=== PATIENT | female | born 1950 | race Caucasian/White ===

== ENCOUNTER 2016-11-15 15:09 | Emergency (ER) | payer MEDICARE, MEDICAID ==
[~2016-11-15] VITALS: Ht 167.6 cm; Wt 70.2 kg
[~2016-11-15 15:09] MED LIST: ACET-1757 PO; ACET325T14 PO; ASPI-621 PO; ASPI325T4 PO; ATOR80TA PO; Atorvastatin Calcium PO; ENAL2.5T32 PO; METO-93 PO; METO25TA35 PO; NICO1PAT5 TD; PRAS10TA4 PO; SUMA100T3 PO; TICA90TA PO
[2016-11-15] MEDS ORDERED: SODIUM CHLORIDE FLUSH 10ML SYR IVF ONE (15:30)
[2016-11-15] MEDS ORDERED: SODIUM CHLORIDE 0.9% 1,000ML IVBOLUS ONE (15:30)
[2016-11-15 15:58] LABS: HEMOGLOBIN 15.6 g/dL (11.7-16.4)
[2016-11-15 16:10] LABS: ASPARTATE AMINO TRANSFERASE 17 U/L (15-37); BLOOD UREA NITROGEN 15 mg/dL (7-18)
[2016-11-15 16:33] LABS: IS PT STATUS REG ER OR PRE ER? YES
[2016-11-15 18:11] VITALS: BP 177/89
== END 2016-11-15 18:57 | disposition home or self-care (01) ==
LOC: ED 16:23
DX: K92.2 Gastrointestinal hemorrhage, unspecified (principal); R07.2 Precordial pain; K05.00 Acute gingivitis, plaque induced; I10 Essential (primary) hypertension; K12.0 Recurrent oral aphthae; E78.5 Hyperlipidemia, unspecified; I25.810 Atherosclerosis of coronary artery bypass graft(s) without angina pectoris; Z95.1 Presence of aortocoronary bypass graft; Z90.89 Acquired absence of other organs
CPT/HCPCS: 36415; 71010; 80053; 84484; 85025; 85610; 85730; 93005

== ENCOUNTER → 2016-11-20 | Outpatient (CLI) | payer MEDICARE, MEDICAID ==
[2016-11-20 15:53] LABS: OCCBLD OBC PASS
== END | disposition home or self-care (01) ==
LOC: CFH 13:38
PROVIDERS: ATTEND Internal Medicine Cardiovascular Disease
DX: R58 Hemorrhage, not elsewhere classified (principal)
CPT/HCPCS: 82272

== ENCOUNTER 2018-03-13 05:10 | Emergency (ER) | payer MEDICARE, MEDICAID ==
[~2018-03-13] VITALS: Ht 170.2 cm; Wt 69.2 kg
[~2018-03-13 05:10] MED LIST changes: +ASPI325T17 PO; -ASPI325T4 PO; +NICO-487 TD; -NICO1PAT5 TD
[2018-03-13 05:11] VITALS: BP 182/99
== END 2018-03-13 06:14 | disposition home or self-care (01) ==
LOC: ED 06:08
DX: S60.042A Contusion of left ring finger without damage to nail, initial encounter (principal); E78.5 Hyperlipidemia, unspecified; I10 Essential (primary) hypertension; I25.2 Old myocardial infarction; F17.200 Nicotine dependence, unspecified, uncomplicated; X58.XXXA Exposure to other specified factors, initial encounter; Y93.89 Activity, other specified; Y92.89 Other specified places as the place of occurrence of the external cause; Y99.8 Other external cause status
CPT/HCPCS: 99284

== ENCOUNTER 2018-09-15 12:31 | Emergency (ER) | payer MEDICARE, MEDICAID ==
[~2018-09-15] VITALS: Ht 170.2 cm; Wt 72.3 kg
[~2018-09-15 12:31] MED LIST changes: -ASPI-621 PO; +ASPI81TA45 PO
--- NOTE | 2018-09-15 14:00 | NUR ---
PT REPORTS DENTAL PAIN X2 DAYS. STATES SHE IS UNABLE TO TAKE "CODEINE WITH EPI, IM ALLERGIC AND THATS WHAT THEY ALWAYS GIVE ME, SO I DONT HAVE A DENTIST I TRUST" PT STATES SHE HAS HX HTN BUT HAS DISCUSSED WITH HER MD "LUCIANA" THAT SHE IS NOT SUPPOSE TO TAKE ANY MEDICATIONS, PT AWARE HER BP IS ELEVATED TODAY, PT STATES THAT IS NORMAL FOR HER AND HER TELEPHONE SALES REPRESENTATIVE IS AWARE AND DENIES THAT SHE IS SUPPOSE TO BE ON ANY MEDICATIONS FOR IT.
--- NOTE | 2018-09-15 14:43 | NUR ---
PT REQ ABX TREATMENT, REFUSES OPTION FOR DRAINING ABCSESS, AWARE TO RETURN FOR ANY WORSENING SYMPTOMS AFTER ABX TREATMENT.
--- NOTE | 2018-09-15 14:59 | NUR ---
SBAR report received from RN, Ginger. Pt resting on charles.
[2018-09-15 15:17] VITALS: BP 143/73
--- NOTE | 2018-09-15 16:04 | NUR ---
Patient/Caregiver given discharge instructions and they have confirmed that they understand the instructions. Patient ambulatory with steady gait.
== END 2018-09-15 16:04 | disposition home or self-care (01) ==
LOC: ED 15:09
DX: K08.89 Other specified disorders of teeth and supporting structures (principal); G40.909 Epilepsy, unspecified, not intractable, without status epilepticus; I10 Essential (primary) hypertension; I25.2 Old myocardial infarction; E78.5 Hyperlipidemia, unspecified; I25.10 Atherosclerotic heart disease of native coronary artery without angina pectoris; Z95.1 Presence of aortocoronary bypass graft
CPT/HCPCS: 99283

== ENCOUNTER 2018-12-03 01:25 | Inpatient (IN) | payer MEDICARE, MEDICAID ==
[~2018-12-03] VITALS: Ht 170.2 cm; Wt 70.4 kg
[~2018-12-03 01:25] MED LIST changes: +AMIODARONE 50 MG/ML, 3ML ONE
[2018-12-03] MEDS ORDERED: FENTANYL PF 100 MCG/2ML ONE ×2 (01:30→01:50)
[2018-12-03 01:41] LABS: MEAN CORPUSCULAR HEMOGLOBIN 32.2 pg (27.0-34.8); MEAN CORPUSCULAR HGB CONC 34.7 g/dL (32.4-35.8); MEAN CORPUSCULAR VOLUME 92.6 fL (80-100); PLATELET COUNT 386 x10^3/uL (130-400); RED BLOOD COUNT 4.79 x10^6/uL (3.82-5.3)
[2018-12-03] MEDS ORDERED: ATROPINE SYRINGE 0.1 MG/ML, 10ML ONE (01:46)
[2018-12-03 01:50] LABS: MD YES
[2018-12-03] MEDS ORDERED: TICAGRELOR 90 MG TABLET ONE (01:50)
[2018-12-03] MEDS ORDERED: VERAPAMIL 2.5 MG/ML, 2ML ONE (01:50)
[2018-12-03] MEDS ORDERED: PHENYLEPHRINE 10 MG/ML ONE (01:51)
[2018-12-03] MEDS ORDERED: MIDAZOLAM 1 MG/ML, 2ML ONE (01:51)
[2018-12-03] MEDS ORDERED: HEPARIN 1,000 UNITS/ML, 10ML ONE (01:51)
[2018-12-03] MEDS ORDERED: LIDOCAINE 2%, 20ML ONE (01:51)
[2018-12-03] MEDS ORDERED: BIVALIRUDIN 250 MG ONE ×2 (01:51→03:03)
[2018-12-03 01:52] LABS: INTERNATIONAL NORMALIZED RATIO 0.99 (0.93-1.1); PROTHROMBIN TIME 10.4 Seconds (9.6-11.5)
[2018-12-03] MEDS ORDERED: HEPARIN 25,000 UNITS/500ML PMX 500 ML ONE (01:53)
[2018-12-03 01:55] LABS: BASOS#(MANUAL) 0.16 x10^3/uL (0-0.1); BASOS% (MANUAL) 1 % (0-1); EOS#(MANUAL) 0.32 x10^3/uL (0.0-0.4); EOS% (MANUAL) 2 % (1-7); LYMPH#(MANUAL) 6.84 x10^3/uL (1-3.4); LYMPHS% (MANUAL) 43 % (22-44); MONOS#(MANUAL) 1.11 x10^3/uL (0.3-2.7); MONOS% (MANUAL) 7 % (2-9); REACTIVE LYMPHS # (MANUAL) 0.48 x10^3/uL (0-0); REACTIVE LYMPHS % (MANUAL) 3 % (0-0); SEGS% (MANUAL) 44 % (42-75)
[2018-12-03 01:56] LABS: <PLATELET ESTIMATE> ADEQUATE; <PLT MORPHOLOGY> NORMAL PLT MORPH; <RBC MORPHOLOGY> NORMAL; SMUDGE CELLS 1+
--- NOTE | 2018-12-03 01:58 | NUR ---
code cardiac called @ 0114 test lab technician called @ 0116 cards paged @ 0124 sriram called back @ 0124
--- NOTE | 2018-12-03 01:59 | NUR ---
code girish called @ [phone]
[2018-12-03] MEDS ORDERED: HEPARIN 5,000 UNITS/ML, 1ML IV ONE (02:00)
[2018-12-03] MEDS ORDERED: FENTANYL PF 100 MCG/2ML IV ONE ×2 (02:00)
[2018-12-03] MEDS ORDERED: HEPARIN 5,000 UNITS/ML, 1ML IV PRN (02:00)
[2018-12-03] MEDS ORDERED: ATROPINE SYRINGE 0.1 MG/ML, 10ML IVPush ONE (02:00)
[2018-12-03] MEDS ORDERED: HEPARIN 25,000 UNITS/500ML PMX 500 ML IV PRN (02:00)
--- NOTE | 2018-12-03 02:38 | NUR ---
PT ARRIVED VIA [facility] D/T CODE CARDIAC. PT'S HR WAS LOW UP TO 40'S BP WAS MANAGABLE 110/66 , [facility] GIVEN 325 ASA WITH IV NS WAS INFUSING GIVEN FENTANYL 100MCG VIA IV , BP WAS DROPPED WITH LOW HR , GIVEN IMG OF ATROPIN BUT DIDN'T WORK WELL DR STRAUSS WAS IN [facility] BACK UPHOLSTERER WAS READY DR BENITEZ STARTED PACER DURING THE TRNASPORTATION. ANOTHER RN OSSHAUNSSE AND THIS RN WAS TRANSFREEING PT BUT ON THE ELEVATER DOOR PT'S HEART RHYTHM WAS VFIB PT WAS BACK TO T4 CODE BLUE WAS CALLED ONE SHOCK WITH AMIODARONE 300MG IV PUSH PT WAS MOANING HR PULSE WAS BACK AMIODARONE 1MG/MIN WAS STARTED PT WAS TRANSFERRED TO [facility] BACK UPHOLSTERER WITH DR BENITEZ WITH STAFFS PT WAS RESPONDING DURING THE TIME
[2018-12-03] MEDS ORDERED: HEPARIN 5,000 UNITS/ML, 1ML ONE (02:51)
[2018-12-03] MEDS ORDERED: BIVALIRUDIN 250 MG in SODIUM CHLORIDE 0.9% 50 ML IV SCH ×2 (02:54→05:30)
[2018-12-03] MEDS ORDERED: AMIODARONE 50 MG/ML, 3ML IVPush ONE (03:00)
[2018-12-03] MEDS ORDERED: ONDANSETRON 2MG/ML, 2ML IVPush PRN (03:00)
[2018-12-03] MEDS ORDERED: CODE BLUE RESPONSE XX ONE (03:00)
[2018-12-03] MEDS ORDERED: SODIUM CHLORIDE 0.9% 1,000 ML IV SCH (03:00)
[2018-12-03] MEDS ORDERED: NITROGLYCERIN 0.4 MG/SPRAY SL PRN (03:00)
[2018-12-03] MEDS ORDERED: AMIODARONE 900 MG in DEXTROSE 5% 482 ML IV PRN (03:00)
[2018-12-03] MEDS ORDERED: NITROGLYCERIN 0.4 MG BOTTLE (25 TABS) SL PRN (03:00)
[2018-12-03] MEDS ORDERED: FILTER 0.22 MICRON IV ONE (03:00)
[2018-12-03] MEDS ORDERED: ZOLPIDEM 5MG TABLET PO PRN (03:00)
[2018-12-03] MEDS ORDERED: AMIODARONE 450 MG in DEXTROSE 5% 241 ML IV PRN (03:00)
[2018-12-03] MEDS ORDERED: DOPAMINE/D5W PMX 250 ML IV PRN (03:30)
[2018-12-03] MEDS: PRASUGREL 10 MG TABLET PO ONE ×2 (03:30→05:26)
[2018-12-03 04:16] VITALS: BP 103/50
[2018-12-03] MEDS: ASPIRIN 81 MG TABLET EC PO SCH ×4 (05:26→10:21)
[2018-12-03 07:25] LABS: MEAN CORPUSCULAR HEMOGLOBIN 31.2 pg (27.0-34.8); MEAN CORPUSCULAR HGB CONC 33.6 g/dL (32.4-35.8); MEAN CORPUSCULAR VOLUME 92.7 fL (80-100); MEAN PLATELET VOLUME 7.2 fL (7.4-10.4); PLATELET COUNT 314 x10^3/uL (130-400); RED BLOOD COUNT 4.74 x10^6/uL (3.82-5.3)
[2018-12-03 07:33] LABS: ALBUMIN 3.5 g/dL (3.4-5.0); ANION GAP 7 mmol/L (5-15); CALCIUM 8.1 mg/dL (8.5-10.1); CHLORIDE 114 mmol/L (98-107)
[2018-12-03 07:43] LABS: ALANINE AMINOTRANSFERASE 397 U/L (12-78); ALKALINE PHOSPHATASE 88 U/L (45-117); BILIRUBIN,TOTAL 0.4 mg/dL (0.2-1.0); CREATININE 0.77 mg/dL (0.55-1.02); FREE T4 (FREE THYROXINE) 1.08 ng/dL (0.76-1.46); TOTAL PROTEIN 6.3 g/dL (6.4-8.2)
[2018-12-03 08:01] LABS: MD SCAN
[2018-12-03 08:02] LABS: BASOPHILS # (AUTO) 0.06 x10^3/uL (0-0.1); BASOPHILS % (AUTO) 0 % (0-1); EOSINOPHILS # (AUTO) 0.01 x10^3/uL (0-0.4); EOSINOPHILS % (AUTO) 0 % (1-7); LYMPHOCYTES # (AUTO) 1.51 x10^3/uL (1-3.4); LYMPHOCYTES % (AUTO) 8 % (22-44); MONOCYTES # (AUTO) 1.32 x10^3/uL (0.2-0.8); MONOCYTES % (AUTO) 7 % (2-9); NEUTROPHILS # (AUTO) 15.93 x10^3/uL (1.8-6.8); NEUTROPHILS % (AUTO) 85 % (42-75)
[2018-12-03] MEDS: PRASUGREL 10 MG TABLET PO SCH (09:00)
[2018-12-03 17:20] LABS: MICROSCOPIC NOT IND
[2018-12-03 17:27] LABS: CULTURE INDICATED? NO
[2018-12-03] MEDS: ACETAMINOPHEN 325 MG TABLET PO PRN (21:32)
[2018-12-03] MEDS: ATORVASTATIN 80 MG TABLET PO SCH (21:32)
[2018-12-04 04:00] VITALS: BP 120/71
[2018-12-04 04:50] LABS: ANION GAP 5 mmol/L (5-15); CHLORIDE 116 mmol/L (98-107)
[2018-12-04 04:52] LABS: BASOPHILS # (AUTO) 0.02 x10^3/uL (0-0.1); BASOPHILS % (AUTO) 0 % (0-1); EOSINOPHILS # (AUTO) 0.04 x10^3/uL (0-0.4); EOSINOPHILS % (AUTO) 0 % (1-7); LYMPHOCYTES # (AUTO) 2.64 x10^3/uL (1-3.4); LYMPHOCYTES % (AUTO) 18 % (22-44); MD NO; MEAN CORPUSCULAR HEMOGLOBIN 31.9 pg (27.0-34.8); MEAN CORPUSCULAR HGB CONC 34.4 g/dL (32.4-35.8); MEAN CORPUSCULAR VOLUME 92.6 fL (80-100); MEAN PLATELET VOLUME 7.3 fL (7.4-10.4); MONOCYTES # (AUTO) 1.06 x10^3/uL (0.2-0.8); MONOCYTES % (AUTO) 7 % (2-9); NEUTROPHILS # (AUTO) 10.78 x10^3/uL (1.8-6.8); NEUTROPHILS % (AUTO) 74 % (42-75); PLATELET COUNT 256 x10^3/uL (130-400); RED BLOOD COUNT 4.25 x10^6/uL (3.82-5.3)
[2018-12-04 05:05] LABS: % IRON SATURATION 19 % (20-55); ALANINE AMINOTRANSFERASE 333 U/L (12-78); ALKALINE PHOSPHATASE 76 U/L (45-117); BILIRUBIN,TOTAL 0.6 mg/dL (0.2-1.0); CHOL/HDL RATIO 6.5; CHOLESTEROL, TOTAL 150 mg/dL (140-239); CREATININE 0.61 mg/dL (0.55-1.02); HDL CHOL % 15 % (28-40); HDL CHOLESTEROL (DIRECT) 23 mg/dL (40-60); IRON LEVEL 51 mcg/dL (50-170); LDL CHOLESTEROL,CALCULATED 93 mg/dL (54-169); TOTAL IRON BINDING CAPACITY 275 mcg/dL (250-450); TOTAL PROTEIN 5.6 g/dL (6.4-8.2); TRIGLYCERIDES 171 mg/dL (50-200); VLDL CHOLESTEROL 34 mg/dL (0-25)
[2018-12-04 05:07] LABS: CREATINE KINASE, TOTAL 1220 U/L (26-192)
[2018-12-04] MEDS: ASPIRIN 81 MG TABLET EC PO SCH (06:11)
[2018-12-04] MEDS: PRASUGREL 10 MG TABLET PO SCH (08:17)
[2018-12-04 12:00] VITALS: BP 147/64
[2018-12-04 20:38] VITALS: BP 133/74
[2018-12-04] MEDS: ATORVASTATIN 80 MG TABLET PO SCH (20:56)
[2018-12-05] MEDS: ACETAMINOPHEN 325 MG TABLET PO PRN ×2 (01:20→10:34)
[2018-12-05 01:54] VITALS: BP 138/83
[2018-12-05] MEDS: ASPIRIN 81 MG TABLET EC PO SCH (05:47)
[2018-12-05 05:54] LABS: BASOPHILS # (AUTO) 0.04 x10^3/uL (0-0.1); BASOPHILS % (AUTO) 0 % (0-1); EOSINOPHILS # (AUTO) 0.09 x10^3/uL (0-0.4); EOSINOPHILS % (AUTO) 1 % (1-7); LYMPHOCYTES # (AUTO) 2.97 x10^3/uL (1-3.4); LYMPHOCYTES % (AUTO) 21 % (22-44); MD NO; MEAN CORPUSCULAR HEMOGLOBIN 31.6 pg (27.0-34.8); MEAN CORPUSCULAR HGB CONC 33.9 g/dL (32.4-35.8); MEAN CORPUSCULAR VOLUME 93.1 fL (80-100); MEAN PLATELET VOLUME 7.6 fL (7.4-10.4); MONOCYTES % (AUTO) 9 % (2-9); NEUTROPHILS # (AUTO) 9.69 x10^3/uL (1.8-6.8); NEUTROPHILS % (AUTO) 69 % (42-75); PLATELET COUNT 247 x10^3/uL (130-400); RED CELL DISTRIBUTION WIDTH 12.9 % (9.6-15.2)
[2018-12-05 06:04] LABS: ANION GAP 6 mmol/L (5-15); CALCIUM 8.6 mg/dL (8.5-10.1); CHLORIDE 113 mmol/L (98-107)
[2018-12-05 06:08] LABS: ALANINE AMINOTRANSFERASE 222 U/L (12-78); ALKALINE PHOSPHATASE 82 U/L (45-117); BILIRUBIN,TOTAL 1.1 mg/dL (0.2-1.0); CREATINE KINASE, TOTAL 399 U/L (26-192); CREATININE 0.49 mg/dL (0.55-1.02)
[2018-12-05 08:09] VITALS: BP 111/72
[2018-12-05] MEDS ORDERED: POTASSIUM CHLORIDE 20 MEQ TAB.ER.PRT PO ONE (10:30)
[2018-12-05] MEDS: PRASUGREL 10 MG TABLET PO SCH (10:34)
[2018-12-05] MEDS: morphine SULFATE 10 MG/ML, 1ML IVPush PRN (15:06)
[2018-12-05 16:18] VITALS: BP 135/80
[2018-12-05 18:55] VITALS: BP 146/76
[2018-12-05] MEDS: ATORVASTATIN 80 MG TABLET PO SCH (20:41)
[2018-12-06 00:57] VITALS: BP 126/72
[2018-12-06] MEDS: ASPIRIN 81 MG TABLET EC PO SCH (05:13)
[2018-12-06] MEDS: morphine SULFATE 10 MG/ML, 1ML IVPush PRN (05:14)
[2018-12-06 06:21] LABS: BASOPHILS # (AUTO) 0.03 x10^3/uL (0-0.1); BASOPHILS % (AUTO) 0 % (0-1); EOSINOPHILS # (AUTO) 0.12 x10^3/uL (0-0.4); EOSINOPHILS % (AUTO) 1 % (1-7); LYMPHOCYTES # (AUTO) 2.18 x10^3/uL (1-3.4); LYMPHOCYTES % (AUTO) 19 % (22-44); MD NO; MEAN CORPUSCULAR HGB CONC 34.6 g/dL (32.4-35.8); MEAN CORPUSCULAR VOLUME 92.4 fL (80-100); MEAN PLATELET VOLUME 7.5 fL (7.4-10.4); MONOCYTES # (AUTO) 1.08 x10^3/uL (0.2-0.8); MONOCYTES % (AUTO) 10 % (2-9); NEUTROPHILS # (AUTO) 7.93 x10^3/uL (1.8-6.8); NEUTROPHILS % (AUTO) 70 % (42-75); PLATELET COUNT 234 x10^3/uL (130-400); RED BLOOD COUNT 4.11 x10^6/uL (3.82-5.3); RED CELL DISTRIBUTION WIDTH 12.9 % (9.6-15.2)
[2018-12-06 06:32] LABS: CHLORIDE 111 mmol/L (98-107)
[2018-12-06 06:39] LABS: ALANINE AMINOTRANSFERASE 151 U/L (12-78); ALBUMIN 2.9 g/dL (3.4-5.0); ALKALINE PHOSPHATASE 72 U/L (45-117); ANION GAP 7 mmol/L (5-15); BILIRUBIN,TOTAL 0.8 mg/dL (0.2-1.0); CALCIUM 8.3 mg/dL (8.5-10.1); CREATININE 0.41 mg/dL (0.55-1.02)
[2018-12-06] MEDS: PRASUGREL 10 MG TABLET PO SCH (07:51)
[2018-12-06 08:20] VITALS: BP 131/78
[2018-12-06] MEDS ORDERED: KETOROLAC 30 MG/1 ML IVPush ONE (10:30)
[2018-12-06] MEDS ORDERED: POTASSIUM CHLORIDE 20 MEQ TAB.ER.PRT PO ONE (10:30)
[2018-12-06 15:50] VITALS: BP 147/83
[2018-12-06 19:00] VITALS: BP 113/64
[2018-12-06] MEDS: ATORVASTATIN 80 MG TABLET PO SCH (20:50)
[2018-12-06] MEDS: METOPROLOL TARTRATE 25 MG TABLET PO SCH (20:50)
[2018-12-07 02:17] VITALS: BP 134/87
[2018-12-07] MEDS: ACETAMINOPHEN 325 MG TABLET PO PRN ×2 (03:32→20:18)
[2018-12-07 05:38] LABS: CHLORIDE 113 mmol/L (98-107)
[2018-12-07 05:48] LABS: ALANINE AMINOTRANSFERASE 112 U/L (12-78); ALBUMIN 3.2 g/dL (3.4-5.0); ALKALINE PHOSPHATASE 92 U/L (45-117); ANION GAP 7 mmol/L (5-15); BILIRUBIN,TOTAL 1.1 mg/dL (0.2-1.0); CALCIUM 8.7 mg/dL (8.5-10.1); CREATININE 0.59 mg/dL (0.55-1.02); TOTAL PROTEIN 6.4 g/dL (6.4-8.2)
[2018-12-07 05:55] LABS: BASOPHILS # (AUTO) 0.03 x10^3/uL (0-0.1); BASOPHILS % (AUTO) 0 % (0-1); EOSINOPHILS # (AUTO) 0.16 x10^3/uL (0-0.4); EOSINOPHILS % (AUTO) 1 % (1-7); LYMPHOCYTES # (AUTO) 2.28 x10^3/uL (1-3.4); LYMPHOCYTES % (AUTO) 18 % (22-44); MD NO; MEAN CORPUSCULAR HEMOGLOBIN 31.8 pg (27.0-34.8); MEAN CORPUSCULAR HGB CONC 34.5 g/dL (32.4-35.8); MEAN CORPUSCULAR VOLUME 92.2 fL (80-100); MEAN PLATELET VOLUME 7.2 fL (7.4-10.4); MONOCYTES # (AUTO) 1.09 x10^3/uL (0.2-0.8); MONOCYTES % (AUTO) 9 % (2-9); NEUTROPHILS # (AUTO) 8.86 x10^3/uL (1.8-6.8); NEUTROPHILS % (AUTO) 71 % (42-75); PLATELET COUNT 288 x10^3/uL (130-400); RED BLOOD COUNT 4.35 x10^6/uL (3.82-5.3)
[2018-12-07 06:03] VITALS: BP 154/72
[2018-12-07] MEDS: METOPROLOL TARTRATE 25 MG TABLET PO SCH ×2 (06:06→18:17)
[2018-12-07] MEDS: ASPIRIN 81 MG TABLET EC PO SCH (06:06)
[2018-12-07] MEDS: PRASUGREL 10 MG TABLET PO SCH (07:48)
[2018-12-07] MEDS: CLOPIDOGREL 75 MG TABLET PO SCH (08:59)
[2018-12-07 14:23] VITALS: BP_SYST 145; BP_SYST 148; BP_DIAS 76; BP_DIAS 81
[2018-12-07] MEDS ORDERED: DOCUSATE 100 MG CAPSULE PO PRN (15:30)
[2018-12-07] MEDS ORDERED: LACTULOSE 20 GM/30 ML UDC PO PRN (15:30)
[2018-12-07 19:30] VITALS: BP 118/68
[2018-12-07] MEDS: ATORVASTATIN 80 MG TABLET PO SCH (20:16)
[2018-12-08 01:43] VITALS: BP 132/81
[2018-12-08 05:37] VITALS: BP 132/72
[2018-12-08] MEDS: ASPIRIN 81 MG TABLET EC PO SCH (05:40)
[2018-12-08] MEDS: METOPROLOL TARTRATE 25 MG TABLET PO SCH ×2 (05:41→17:16)
[2018-12-08 05:47] VITALS: BP 118/69
[2018-12-08 08:00] VITALS: BP 121/78
[2018-12-08] MEDS: CLOPIDOGREL 75 MG TABLET PO SCH (08:21)
[2018-12-08 13:12] VITALS: BP 130/77
[2018-12-08 19:00] VITALS: BP 109/58
[2018-12-08] MEDS: ATORVASTATIN 80 MG TABLET PO SCH (21:11)
[2018-12-09 01:34] VITALS: BP 133/77
[2018-12-09 07:02] VITALS: BP 125/77
[2018-12-09] MEDS: METOPROLOL TARTRATE 25 MG TABLET PO SCH ×2 (07:21→18:12)
[2018-12-09] MEDS: ASPIRIN 81 MG TABLET EC PO SCH (07:21)
[2018-12-09] MEDS: CLOPIDOGREL 75 MG TABLET PO SCH (08:43)
[2018-12-09] MEDS ORDERED: ACET325T14 PO (10:50)
[2018-12-09] MEDS ORDERED: CLOP75TA PO (10:50)
[2018-12-09] MEDS ORDERED: ATOR-2 PO (10:50)
[2018-12-09 12:15] VITALS: BP 107/69
[2018-12-09 19:51] VITALS: BP 124/72
[2018-12-09] MEDS: ATORVASTATIN 80 MG TABLET PO SCH (21:03)
[2018-12-09] MEDS: ACETAMINOPHEN 325 MG TABLET PO PRN (21:03)
[2018-12-10 01:50] VITALS: BP 108/65
[2018-12-10 07:10] VITALS: BP 138/81
[2018-12-10] MEDS: METOPROLOL TARTRATE 25 MG TABLET PO SCH (07:21)
[2018-12-10] MEDS: ASPIRIN 81 MG TABLET EC PO SCH (07:21)
[2018-12-10] MEDS: CLOPIDOGREL 75 MG TABLET PO SCH (07:37)
== END 2018-12-10 10:38 | DRG 248 ==
LOC: ED 02:01 → EDIP 02:54 → CCU 03:34 → 5SO 12-04 11:00
PROVIDERS: ADMIT Internal Medicine Cardiovascular Disease; ATTEND Internal Medicine
PROC: 02703DZ Dilation of Coronary Artery, One Artery with Intraluminal Device, Percutaneous Approach (ICD-10-PCS; principal; 2018-12-03)
PROC: 5A12012 Performance of Cardiac Output, Single, Manual (ICD-10-PCS; 2018-12-03)
PROC: 5A2204Z Restoration of Cardiac Rhythm, Single (ICD-10-PCS; 2018-12-03)
PROC: 4A023N7 Measurement of Cardiac Sampling and Pressure, Left Heart, Percutaneous Approach (ICD-10-PCS; 2018-12-03)
PROC: B2111ZZ Fluoroscopy of Multiple Coronary Arteries using Low Osmolar Contrast (ICD-10-PCS; 2018-12-03)
PROC: B2151ZZ Fluoroscopy of Left Heart using Low Osmolar Contrast (ICD-10-PCS; 2018-12-03)
PROC: 5A1223Z Performance of Cardiac Pacing, Continuous (ICD-10-PCS; 2018-12-03)
PROC: 0T9B70Z Drainage of Bladder with Drainage Device, Via Natural or Artificial Opening (ICD-10-PCS; 2018-12-03)
DX: I21.19 ST elevation (STEMI) myocardial infarction involving other coronary artery of inferior wall (principal); I49.01 Ventricular fibrillation; G93.41 Metabolic encephalopathy; R57.0 Cardiogenic shock; I63.9 Cerebral infarction, unspecified; R47.01 Aphasia; I44.2 Atrioventricular block, complete; I25.10 Atherosclerotic heart disease of native coronary artery without angina pectoris; E87.6 Hypokalemia; I48.91 Unspecified atrial fibrillation; I27.20 Pulmonary hypertension, unspecified; I10 Essential (primary) hypertension; E78.5 Hyperlipidemia, unspecified; M32.9 Systemic lupus erythematosus, unspecified; G40.909 Epilepsy, unspecified, not intractable, without status epilepticus; R13.10 Dysphagia, unspecified; Z79.82 Long term (current) use of aspirin; I25.2 Old myocardial infarction; Z91.19 Patient's noncompliance with other medical treatment and regimen; Z87.891 Personal history of nicotine dependence; Z95.0 Presence of cardiac pacemaker; Z95.1 Presence of aortocoronary bypass graft
CPT/HCPCS: 33210; 36415; 70450; 71045; 80047; 80053; 80061; 81003; 82550; 83540; 83550; 83735; 84100; 84439; 84443; 84484; 85025; 85520; 85610; 85730; 87081; 93005; 93306; 93458; 93880; 96374; 96375; 99156; 99157; 99291; C1769; C1876; C1894; G0378; J0461; J0583; J1644; J1885; J2250; J3010; J7060; 92523-GN; C1725; C1887; J0282; J2270; J2370; Q9967

== ENCOUNTER → 2019-03-17 | Outpatient (CLI) | payer MEDICARE, MEDICAID ==
[~2019-03-17] MED LIST changes: -AMIODARONE 50 MG/ML, 3ML ONE; +ATOR-2 PO; +CLOP75TA PO
== END | disposition home or self-care (01) ==
LOC: CFH 12:03
PROVIDERS: ATTEND Internal Medicine Cardiovascular Disease
DX: I08.1 Rheumatic disorders of both mitral and tricuspid valves (principal); I25.10 Atherosclerotic heart disease of native coronary artery without angina pectoris; I10 Essential (primary) hypertension; E78.5 Hyperlipidemia, unspecified; I25.2 Old myocardial infarction
CPT/HCPCS: 93306